=== PATIENT | female | born 1945 | race Caucasian/White ===

== ENCOUNTER → 2025-06-05 | Outpatient (CLI) | payer MEDICARE, OTHER | LOC: M PLAIMG 07:17 | PROVIDERS: ATTEND Anesthesiology Pain Medicine | DX: M47.22 Other spondylosis with radiculopathy, cervical region (principal); M48.02 Spinal stenosis, cervical region; M50.123 Cervical disc disorder at C6-C7 level with radiculopathy ==

== ENCOUNTER → 2025-08-10 | Outpatient (CLI) | payer MEDICARE, OTHER ==
[~2025-08-10] MED LIST: PROHANCE 279.3MG/ML 15ML VIAL ONE; PROHANCE 279.3MG/ML 5ML VIAL ONE
== END ==
LOC: M PLAIMG 09:27
PROVIDERS: ATTEND Nurse Practitioner
DX: T85.43XA Leakage of breast prosthesis and implant, initial encounter (principal); Z98.82 Breast implant status
CPT/HCPCS: A9576; C8908

== ENCOUNTER → 2025-11-02 | Outpatient (CLI) | payer MEDICARE, OTHER | LOC: M PLARAD 14:13 | PROVIDERS: ATTEND Specialist | DX: R42 Dizziness and giddiness (principal); M50.00 Cervical disc disorder with myelopathy, unspecified cervical region; M48.02 Spinal stenosis, cervical region ==